=== PATIENT | male | born 1940 | race Caucasian/White ===

== ENCOUNTER 2021-11-10 09:01 | Inpatient (IN) ==
[2021-11-10 10:02] LABS: Basophils % 0.4 %; Eosinophils % 0.3 %; Hematocrit 23.9 % (37.5-50.1); Hemoglobin 7.9 g/dL (12.9-16.9); Immature Granulocytes % 0.5 % (0-4); Lymphocytes # 1.3 K/mcL (0.6-4.6); Lymphocytes % 12.6 %; Mean Corpuscular HGB Conc 33.1 g/dL (31.6-35.5); Mean Corpuscular Hemoglobin 31.5 pg (28.0-33.3); Mean Corpuscular Volume 95.2 fL (83.0-100.0); Mean Platelet Volume 11.2 fL (9.4-12.4); Monocytes # 0.6 K/mcL (0.0-1.3); Monocytes % 6.2 %; Platelet Count 166 K/mcL (140-400); Red Blood Count 2.51 M/mcL (4.19-5.50); Red Cell Distribution Width 13.6 % (11.5-14.5)
[2021-11-10 10:13] LABS: Alanine Aminotransferase 10 Units/L (7-52); Albumin 3.6 g/dL (3.5-5.7); Albumin/Globulin Ratio 1.9 (1.1-2.2); Alkaline Phosphatase 50 Units/L (34-104); Aspartate Amino Transferase 17 Units/L (13-39); BUN/Creatinine Ratio 71 (6-26); Bilirubin,Total 0.6 mg/dL (0.3-1.0); Blood Urea Nitrogen 65 mg/dL (8-23); Calcium 9.4 mg/dL (8.6-10.3); Carbon Dioxide 25 mEq/L (23-29); Chloride 109 mEq/L (98-107); Globulin 1.9 g/dL (2.4-3.5); Glucose 169 mg/dL (70-105); Osmolality,Calculated 315 (280-300); Potassium 4.2 mEq/L (3.5-5.1); Sodium 141 mEq/L (136-145); Total Protein 5.5 g/dL (6.4-8.9); Troponin I < 0.03 ng/mL (< 0.04); eGFR For African Americans > 60 (> 60); eGFR For Non-African Americans > 60 (> 60)
[2021-11-10] MEDS ORDERED: Pantoprazole 40 MG VIAL IVP ONE (10:20)
[2021-11-10 10:23] LABS: Influenza A PCR Negative (Negative); Influenza B PCR Negative (Negative); Resp. Syncytial Virus PCR Negative (Negative)
[2021-11-10 10:50] LABS: Creatine Kinase 292 Units/L (30-223)
[2021-11-10 10:54] LABS: INR 1.2
[2021-11-10 10:56] LABS: Activated Partial Thrombo Time 29.7 Seconds (26.0-36.0)
[2021-11-10 11:10] LABS: SARS-CoV-2 by PCR (In House) Negative (Negative)
[2021-11-10] MEDS ORDERED: Iopamidol - 370 500 ML MLS IVP ONE (11:19)
[2021-11-10] MEDS ORDERED: Ondansetron 4 MG/2 ML VIAL IVP PRN (12:48)
[2021-11-10] MEDS ORDERED: *HR* Propofol 200 MG/20 ML VIAL IVP ONE (15:20)
[2021-11-10] MEDS ORDERED: Lidocaine -MPF 2% 5 ML VIAL ONE (15:20)
[2021-11-10] MEDS ORDERED: Ondansetron 4 MG/2 ML VIAL ONE (15:28)
[2021-11-10] MEDS: Famotidine 20 MG TABLET PO SCH (20:04)
[2021-11-10] MEDS: hydrALAZINE 10 MG TABLET PO SCH (20:04)
[2021-11-11 03:02] LABS: Basophils % 0.3 %; Eosinophils # 0.2 K/mcL (0.0-0.6); Eosinophils % 2.9 %; Hematocrit 19.3 % (37.5-50.1); Immature Granulocytes % 0.7 % (0-4); Lymphocytes # 1.5 K/mcL (0.6-4.6); Lymphocytes % 20.7 %; Mean Corpuscular HGB Conc 32.6 g/dL (31.6-35.5); Mean Corpuscular Hemoglobin 31.2 pg (28.0-33.3); Mean Corpuscular Volume 95.5 fL (83.0-100.0); Mean Platelet Volume 11.4 fL (9.4-12.4); Monocytes # 0.5 K/mcL (0.0-1.3); Monocytes % 6.8 %; Platelet Count 132 K/mcL (140-400); Red Blood Count 2.02 M/mcL (4.19-5.50); Red Cell Distribution Width 13.8 % (11.5-14.5); Segmented Neutrophils % 68.6 %; White Blood Count 7.2 K/mcL (4.3-11.1)
[2021-11-11 03:18] LABS: BUN/Creatinine Ratio 53 (6-26); Blood Urea Nitrogen 46 mg/dL (8-23); Calcium 9.2 mg/dL (8.6-10.3); Carbon Dioxide 28 mEq/L (23-29); Chloride 110 mEq/L (98-107); Glucose 123 mg/dL (70-105); Osmolality,Calculated 303 (280-300); Potassium 4.2 mEq/L (3.5-5.1); Sodium 140 mEq/L (136-145); eGFR For African Americans > 60 (> 60); eGFR For Non-African Americans > 60 (> 60)
[2021-11-11 03:50] LABS: Hemoglobin 6.3 g/dL (12.9-16.9)
[2021-11-11] MEDS: Finasteride 5 MG TABLET PO SCH (07:45)
[2021-11-11] MEDS: atenoloL 50 MG TABLET PO SCH (07:46)
[2021-11-11] MEDS: hydrALAZINE 10 MG TABLET PO SCH ×2 (07:46→20:53)
[2021-11-11] MEDS ORDERED: 0.9 % Sodium Chloride 250 ML ONE (10:18)
[2021-11-11] MEDS: Pantoprazole 40 MG VIAL IVP SCH (17:54)
[2021-11-11] MEDS: Famotidine 20 MG TABLET PO SCH (20:53)
[2021-11-12 02:58] LABS: Basophils # 0.1 K/mcL (0.0-0.2); Basophils % 0.7 %; Eosinophils # 0.3 K/mcL (0.0-0.6); Eosinophils % 4.4 %; Hematocrit 24.7 % (37.5-50.1); Immature Granulocytes % 0.8 % (0-4); Lymphocytes # 1.9 K/mcL (0.6-4.6); Mean Corpuscular HGB Conc 33.2 g/dL (31.6-35.5); Mean Corpuscular Hemoglobin 30.8 pg (28.0-33.3); Mean Corpuscular Volume 92.9 fL (83.0-100.0); Mean Platelet Volume 11.3 fL (9.4-12.4); Monocytes # 0.5 K/mcL (0.0-1.3); Monocytes % 6.8 %; Neutrophils # 4.5 K/mcL (1.6-8.9); Platelet Count 131 K/mcL (140-400); Red Blood Count 2.66 M/mcL (4.19-5.50); Segmented Neutrophils % 61.3 %; White Blood Count 7.4 K/mcL (4.3-11.1)
[2021-11-12 03:17] LABS: BUN/Creatinine Ratio 30 (6-26); Blood Urea Nitrogen 27 mg/dL (8-23); Carbon Dioxide 29 mEq/L (23-29); Chloride 108 mEq/L (98-107); Glucose 108 mg/dL (70-105); Osmolality,Calculated 294 (280-300); Potassium 3.9 mEq/L (3.5-5.1); Sodium 139 mEq/L (136-145); eGFR For African Americans > 60 (> 60); eGFR For Non-African Americans > 60 (> 60)
[2021-11-12 03:33] LABS: Hemoglobin 8.2 g/dL (12.9-16.9)
[2021-11-12] MEDS: Pantoprazole 40 MG VIAL IVP SCH (05:34)
[2021-11-12] MEDS: Finasteride 5 MG TABLET PO SCH (08:43)
[2021-11-12] MEDS: hydrALAZINE 10 MG TABLET PO SCH (08:43)
[2021-11-12] MEDS: atenoloL 50 MG TABLET PO SCH (08:43)
[2021-11-12 11:13] VITALS: BP 124/67; PULSE 71; TEMP 97.6; O2SAT 98
[2021-11-12 11:45] LABS: Hematocrit 25.4 % (37.5-50.1); Hemoglobin 8.5 g/dL (12.9-16.9)
== END 2021-11-12 12:54 | disposition home or self-care (01) | DRG 378 ==
LOC: EMEROOARM 09:01 → 3BNU 09:01 → SUATTDRO 14:02 → 3BNU 14:32
PROVIDERS: ADMIT Internal Medicine; ATTEND Registered Nurse